=== PATIENT | female | born 1960 | race Caucasian/White ===

== ENCOUNTER → 2024-02-02 14:38 | Outpatient (REF) | payer OTHER, SELFPAY | LOC: HWRAD 14:38 | PROVIDERS: ATTENDING PHYSICIAN Physician Assistant Medical | DX: M79.674 Pain in right toe(s) (principal) | CPT/HCPCS: 73620 ==

== ENCOUNTER 2024-02-28 14:55 | Emergency (ER) | payer OTHER, SELFPAY ==
[2024-02-28 14:57] VITALS: BP 170/90
--- NOTE | 2024-02-28 16:11 | ED.GENMED ---
History of Present Illness
General
Chief Complaint: Allergic Reaction
Source: patient
Time Seen by Provider: 02/28/24 16:00
History of Present Illness
History of Present Illness:
63-year-old female with past medical history of asthma presenting to the emergency department for evaluation after she tested positive for COVID on Tuesday, symptoms began on Tuesday evening, started on Paxlovid over the weekend yesterday into today
started to notice her throat feel little itchy and had a rash on the anterior part of her chest/neck which had her concerned for possible allergic reaction. Patient took 2 Benadryl prior to coming to the emergency department. Her only other
symptoms she notes are some sinus congestion and loose stool. Patient states she has not had any fevers over the last 2 days. She has no other concerns at this time and otherwise denies any drooling/spitting, difficulty breathing, lip swelling,
tongue swelling, cough, vomiting or any other concerns.
Past History
Past History
ED Past Medical History: Asthma, Hypercholesterolemia (takes statin) and Other (Diverticulitis)
ED Past Surgical History: Other (brease biopsies,)
Social History
Tobacco: Non-smoker
Alcohol: Occasional
Drug: None
Personal:
Living: alone
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
Family History
Family History: Other
Review of Systems
Review of Systems
All Other Systems: ROS reviewed and negative except as documented in HPI and ROS
Phy Exam
Physical Exam
Physical Exam:
GENERAL: Alert , in no apparent distress
EYE: conjunctiva clear
NECK: Supple, no significant adenopathy.
ENT: o/p clr, mmm. Uvula midline, airway patent, no evidence for angioedema or anaphylaxis
CARDIAC: Regular rate and rhythm
LUNGS: Clear breath sounds bilaterally, no acute respiratory distress, no wheezes/rales/rhonchi
NEUROLOGICAL: Alert and oriented
SKIN: Warm and dry, skin intact.
MUSCULOSKELETAL: well perfused.
PSYCH: Normal and appropriate interaction.
Scores
Heart Failure Risk
Heart Failure Risk Score: Not Applicable
Heart Score for Chest Pain Patients
STEMI patient?: Not applicable
Withdrawal Assessment of Alcohol
Withdrawal Assessment Completed?: Not applicable
Course
Vital Signs
Initial and Last Documented VS:
Initial Vital Signs
Temp Pulse Resp BP Pulse Ox
98.4 F 69 16 170/90 98
02/28/24 14:57 02/28/24 14:57 02/28/24 14:57 02/28/24 14:57 02/28/24 14:57
Last Documented Vital Signs
Temp Pulse Resp BP Pulse Ox
98.4 F 69 16 170/90 98
02/28/24 14:57 02/28/24 14:57 02/28/24 14:57 02/28/24 14:57 02/28/24 14:57
MDM/Problems Addressed
Differential Diagnosis Includes:
Medication reaction to Paxlovid, COVID, currently no suspicion for anaphylaxis
MDM/Problems Addressed:
63-year-old female presenting to the emergency department with concern for possible allergic reaction versus COVID symptoms, noting throat feels a little itchy and also had a rash on the anterior portion of her neck. Started Paxlovid 2 days ago.
Tested positive for COVID on Tuesday, started on Tuesday. At this time patient is not exhibiting any signs of anaphylaxis or significant allergic reaction. We had extensive conversation about patient's symptoms and that it could potentially be
related to her COVID infection or also related to her initiating Paxlovid. At this time we discussed that it would be best to stop taking the Paxlovid and that patient can continue Benadryl as needed for symptoms. Would like to avoid steroids at
this time as this could interact with her current COVID infection. Discussed signs and symptoms to return to the emergency department with patient. At present time patient is otherwise stable for discharge home and outpatient management. She will
discontinue taking Paxlovid.
*Pulse Oximetry
Patient hypoxic: no
*Critical Care Note
Total Time (30-74mins, 75-104mins- exclusive of procedures): Not Applicable
ED Attending Note
-
Portions of this chart may have been created with voice recognition software.� Occasional wrong word or��sound alike� substitutions may have occurred due to the inherent limitations of voice recognition software.
Discharge Plan
Departure
Patient Disposition: Home (Routine Discharge)
Date of Disposition: 02/28/24
Time of Disposition: 16:11
Patient with high blood pressure during this ER visit?: Yes
Discharge Problem:
COVID-19
Instructions: Drug allergy
Prescriptions:
No Action
atorvastatin 20 MG tablet
20 mg PO QPM
cetirizine 10 MG tablet
10 mg PO DAILYPRN PRN (Reason: as directed)
famotidine 40 MG tablet
40 mg PO DAILYPRN PRN (Reason: GERD)
multivitamin with folic acid [Tab-A-Kristal] 1 TABLET tablet
1 tab PO DAILY
metronidazole 500 MG tablet
500 mg PO TID 6 Days Qty: 18 0RF
levofloxacin 750 MG tablet
750 mg PO DAILY 6 Days Qty: 6 0RF
doxycycline hyclate 100 mg capsule
100 mg PO BID 10 Days Qty: 20 0RF
Interventions
Interventions:
ED- Cardiac Assessment Last Done: 02/28/24 16:18
ED- Pulmonary Assessment Last Done: 02/28/24 16:18
ED-Skin Assessment Last Done: 02/28/24 16:18
Discharge Date and Time
Print Language: ITALIAN
== END 2024-02-28 16:56 | disposition home or self-care (01) ==
LOC: EMR 14:55
PROVIDERS: EMERGENCY PHYSICIAN Emergency Medicine
DX: U07.1 COVID-19 (principal); R03.0 Elevated blood-pressure reading, without diagnosis of hypertension
CPT/HCPCS: 99282

== ENCOUNTER → 2024-03-05 11:39 | Outpatient (REF) | payer OTHER, SELFPAY | LOC: WDC 11:39 | PROVIDERS: ATTENDING PHYSICIAN Family Medicine; FAMILY PHYSICIAN Physician Assistant Medical | DX: Z12.31 Encounter for screening mammogram for malignant neoplasm of breast (principal) | CPT/HCPCS: 77063; 77067 ==

== ENCOUNTER 2024-04-29 11:26 | Emergency (ER) | payer OTHER, SELFPAY ==
[2024-04-29 11:29] VITALS: BP 127/82
--- NOTE | 2024-04-29 12:41 | ED.GENMED ---
History of Present Illness
General
Chief Complaint: Rectal Bleeding
Source: patient
Exam Limitations: none
Time Seen by Provider: 04/29/24 12:11
Nursing documentation reviewed up to this point in time: agreed with
History of Present Illness
History of Present Illness:
Patient to ED with complaint of diarrhea, abdominal bloating. Symptoms started last . Placed on doxy by PCP on tuesday. States she stopped med on tuesday due to diarrhea worsening. Poor appetite. Reports low grade temp onTuesday. Brought
self to ED for eval. History of diverticulitis.
Past History
Past History
ED Past Medical History: Asthma, Hypercholesterolemia (takes statin) and Other (Diverticulitis)
ED Past Surgical History: Other (brease biopsies,)
Social History
Tobacco: Non-smoker
Alcohol: Occasional
Drug: None
Personal:
Living: alone
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
Family History
Family History: Other
Review of Systems
Review of Systems
Allergies reviewed?: Yes
All Other Systems: ROS reviewed and negative except as documented in HPI and ROS
Constitutional: Reports no symptoms
EENT: Reports no symptoms
Respiratory: Reports no symptoms
Cardiac: Reports no symptoms
ABD/GI: Reports diarrhea, anorexia and other (bloating)
: Reports no symptoms
Musculoskeletal: Reports no symptoms
Skin: Reports no symptoms
Neurological: Reports no symptoms
Psychiatric: Reports no symptoms
Phy Exam
General Physical Exam
General Presentation: well appearing and mild distress
General age: appears stated age
General Skin: warm and dry
General Habitus: normal
General Mental: alert
Cardiovascular Exam
Cardiovascular Exam: regular rate/rhythm and no edema
Gastrointestinal Exam
Gastrointestinal Exam: normal bowel sounds, soft, no organomegaly, non distended and no cva tenderness
Palpation: generalized: Mild tenderness
Musculoskeletal Exam
Musculoskeletal Exam: full ROM and neuro vasc intact
Skin Exam
Skin Exam: normal color, warm/dry and no rash
Psychiatric Exam
Psychiatric Exam: normal mood/affect
Course
Orders/Labs/Results
Orders:
Orders
04/29/24 12:34
CT Abd/pel W Iv And Oral Contr Urgent
Comment:
Reason For Exam: abd. pain, diarrhea, divertic hx
0.9% Sodium Chloride 1000 ml [Nss] 1,000 ml IV BOLUS
Iohexol [Omnipaque] See Protocol PO NOW STA
04/29/24 12:53
Complete Blood Count/With Diff Urgent
Comprehensive Metabolic Panel Urgent
Lipase Urgent
04/29/24 12:59
STOOL [C difficile Antigen & Toxins] Urgent
RAMANDEEP Source: Feces/Stool
Specimen Description:
Date Specimen was Collected: 04/29/24
Time Specimen was Collected: 12:54
Stool Culture Urgent
RAMANDEEP Source: Feces/Stool
Specimen Description:
Date Specimen was Collected: 04/29/24
Time Specimen was Collected: 12:54
04/29/24 16:09
LevoFLOXacin [Levaquin] 500 mg PO NOW STA
MetroNIDAZOLE [Flagyl] 500 mg PO NOW STA
Abnormal Lab Results
04/29/24
12:53
MCH 31.5 H pg
(27.0-31.0)
Plt Count 407 H 10^3/uL
(130-400)
Glucose 101 H mg/dl
(70-99)
Calcium 10.5 H mg/dl
(8.4-10.2)
Total Bilirubin 2.1 H mg/dl
(0.2-1.3)
AST 38 H U/L
(14-36)
04/29/24 12:53
04/29/24 12:53
Vital Signs
Initial and Last Documented VS:
Initial Vital Signs
Temp Pulse Resp BP Pulse Ox
98.3 F 92 18 127/82 97
04/29/24 11:29 04/29/24 11:29 04/29/24 11:29 04/29/24 11:29 04/29/24 11:29
Last Documented Vital Signs
Temp Pulse Resp BP Pulse Ox
98.3 F 72 18 124/72 97
04/29/24 11:29 04/29/24 14:15 04/29/24 11:29 04/29/24 15:38 04/29/24 11:29
*Radiology
Radiology exam reviewed: radiology read reviewed
*Pulse Oximetry
Patient hypoxic: no
*Critical Care Note
Total Time (30-74mins, 75-104mins- exclusive of procedures): Not Applicable
ED Attending Note
-
Portions of this chart may have been created with voice recognition software.� Occasional wrong word or��sound alike� substitutions may have occurred due to the inherent limitations of voice recognition software.
Discharge Plan
Departure
Patient Disposition: Home (Routine Discharge)
Date of Disposition: 04/29/24
Time of Disposition: 16:11
Patient with high blood pressure during this ER visit?: No
Condition: Good
Covid-19: Not Applicable
Discharge Problem:
Diverticulitis
Instructions: Diverticulosis (DC)
Prescriptions:
New
metronidazole 500 mg tablet
500 mg PO TID Qty: 20 0RF
levofloxacin 500 mg tablet
500 mg PO DAILY 7 Days Qty: 7 0RF
No Action
famotidine 40 MG tablet
40 mg PO DAILYPRN PRN (Reason: GERD)
atorvastatin [Lipitor] 40 mg Tablet
40 mg PO HS
bismuth subsalicylate [Pepto-Bismol] 262 mg Tablet,Chewable
3 tab PO DAILYPRN PRN (Reason: gerd)
Referrals:
Sandra Hooper PA-C [Family Provider] -
Activity Restrictions/Additional Instructions:
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 Return to the emergency department immediately for fever/chills, pain, vomiting, weakness, or for any further concerns.
Interventions
Interventions:
*Risk Screen - Suicide Last Done: 04/29/24 11:29
*General Assessment Last Done: 04/29/24 11:29
*Neglect/Abuse Screening Last Done: 04/29/24 11:29
ED- Fall Risk Assessment Last Done: 04/29/24 14:30
*ED COVID-19 Vaccine History Last Done: 04/29/24 14:20
JS-Krdhzt-Kvfjtesrof Assessment Last Done: 04/29/24 12:00
ED- Cardiac Assessment Last Done: 04/29/24 12:19
ED- Pulmonary Assessment Last Done: 04/29/24 12:19
Discharge Date and Time
Print Language: KINYARWANDA
[2024-04-29 13:07] LABS: % Basophils 0.2 % (0-2); % Eosinophils 0.2 % (0-6); % Immature Granulocytes 0.5 % (0-0.5); % Monocytes 6.3 % (1.7-9.3); % Neutrophils 71.8 % (42.2-75.2); Absolute Lymphocytes 1.3 10^3/uL (1.2-3.4); Absolute Monocytes 0.4 10^3/uL (0.1-0.6); Absolute Neutrophils 4.5 10^3/uL (1.4-6.5); Hematocrit 39.7 % (37.0-47.0); Hemoglobin 13.9 g/dL (12.0-16.0); Mean Corpuscular Hgb 31.5 pg (27.0-31.0); Mean Platelet Volume 9.2 fL (7.4-10.4); Nucleated Red Blood Cells % 0 %; Platelet Count 407 10^3/uL (130-400); Red Blood Cell Count 4.41 10^6/uL (4.20-5.40); Red Cell Dist. Width 11.9 % (11.5-14.5); White Blood Cell Count 6.2 10^3/uL (4.8-10.8)
[2024-04-29] MEDS: OMNIPAQUE 50 ML PO (13:12)
[2024-04-29] MEDS: NSS 1000 IV (13:12)
[2024-04-29 13:22] LABS: ALT (SGPT) 32 U/L (0-35); AST (SGOT) 38 U/L (14-36); Albumin 4.8 g/dl (3.5-5.0); Alkaline Phosphatase 86 U/L (38-126); Blood Urea Nitrogen 12 mg/dl (7-17); Calcium 10.5 mg/dl (8.4-10.2); Carbon Dioxide 26 mmol/L (22-30); Chloride 99 mmol/L (98-107); Glucose 101 mg/dl (70-99); Lipase 80 U/L (23-300); Potassium 4.7 mmol/L (3.5-5.1); Sodium 137 mmol/L (135-145); Total Bilirubin 2.1 mg/dl (0.2-1.3); Total Protein 7.3 g/dl (6.3-8.2); eGFR > 60.00
[2024-04-29 14:15] VITALS: BP 134/73
[2024-04-29 15:38] VITALS: BP 124/72
[2024-04-29] MEDS: LEVAQUIN 500 MG PO (16:14)
[2024-04-29] MEDS: FLAGYL 500 MG PO (16:14)
== END 2024-04-29 16:50 | disposition home or self-care (01) ==
LOC: EMR 11:26
PROVIDERS: Nurse Practitioner; EMERGENCY PHYSICIAN Emergency Medicine; FAMILY PHYSICIAN Physician Assistant Medical
DX: K57.32 Diverticulitis of large intestine without perforation or abscess without bleeding (principal); J45.909 Unspecified asthma, uncomplicated; E78.00 Pure hypercholesterolemia, unspecified
CPT/HCPCS: 99284; 74177; 80053; 83690; 85025; 87045; 87046; 87324; 87427; 87449; Q9967

== ENCOUNTER → 2025-02-13 14:24 | Outpatient (REF) | payer OTHER, SELFPAY | LOC: HWRAD 14:24 | PROVIDERS: ATTENDING PHYSICIAN Physician Assistant Medical | DX: M79.642 Pain in left hand (principal) | CPT/HCPCS: 73130 ==

== ENCOUNTER → 2025-03-12 10:49 | Outpatient (REF) | payer OTHER, SELFPAY | LOC: WDC 10:49 | PROVIDERS: ATTENDING PHYSICIAN Physician Assistant Medical | DX: Z12.31 Encounter for screening mammogram for malignant neoplasm of breast (principal) | CPT/HCPCS: 77063; 77067 ==

== ENCOUNTER → 2025-04-02 09:44 | Outpatient (REF) | payer OTHER, SELFPAY | LOC: WDC 09:44 | PROVIDERS: ATTENDING PHYSICIAN Physician Assistant Medical | DX: R92.8 Other abnormal and inconclusive findings on diagnostic imaging of breast (principal) | CPT/HCPCS: 76642 ==

== ENCOUNTER 2025-05-15 09:52 | Emergency (ER) | payer OTHER, SELFPAY ==
[2025-05-15 09:58] VITALS: BP 156/74
[2025-05-15 11:10] VITALS: BMI 29.2
--- NOTE | 2025-05-15 11:13 | ED.GENMED ---
History of Present Illness
General
Chief Complaint: Abdominal Pain
Source: patient
Exam Limitations: none
Time Seen by Provider: 05/15/25 11:06
History of Present Illness
History of Present Illness:
64yoF with a history of hyperlipidemia, GERD, and hiatal hernia presenting for evaluation of epigastric pain. Symptoms began this morning while she was drinking krista tea which she does every day. She reports an intense pain in her epigastric
region which radiated throughout her upper abdomen. Symptoms have been present for about 2 hours but are now improving. Her current pain is rated as a 3 out of 10 in severity. She took Tylenol earlier for the pain. She is otherwise asymptomatic
and denies any nausea, vomiting, chest pain, shortness of breath. Patient had a bowel movement just before her symptoms began which was normal. No previous abdominal surgeries.
Past History
Past History
ED Past Medical History: Asthma, Hypercholesterolemia (takes statin) and Other (Diverticulitis)
ED Past Surgical History: Other (brease biopsies,)
Social History
Tobacco: Non-smoker
Alcohol: Occasional
Drug: None
Personal:
Living: alone
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
Family History
Family History: Other
Phy Exam
General Physical Exam
General Presentation: well appearing and no apparent distress
General Skin: warm and dry
General Habitus: normal
General Mental: alert
ENT Exam
ENT Exam: normocephalic
Cardiovascular Exam
Cardiovascular Exam: regular rate/rhythm and no murmur
Pulmonary Exam
Pulmonary Exam: lungs clear, no respiratory distress, no rales, no crackles, no rhonchi and no wheezing
Gastrointestinal Exam
Gastrointestinal Exam: soft, non distended and other (+Mild tenderness in epigastrium and LUQ. Abdomen soft, non-distended. No rebound or guarding. Negative Hooper's sign.)
Neurological Exam
Neurological Exam: alert
[place] Coma Scale
Eye Opening: Spontaneous
Verbal Response: Oriented
Motor Response: Obeys Commands
GCS Total Score: 15
Skin Exam
Skin Exam: normal color and warm/dry
Psychiatric Exam
Psychiatric Exam: normal mood/affect
Course
Orders/Labs/Results
Orders:
Orders
05/15/25 10:01
ECG [Electrocardiogram (*1)] Urgent
Reason for Study: Chest Pain
EKG- Treatment ONCE
05/15/25 11:23
US Abdomen Complete/Upper Urgent
Comment:
Reason For Exam: epigastric pain
05/15/25 11:41
Complete Blood Count/With Diff Urgent
Comprehensive Metabolic Panel Urgent
Lipase Urgent
Troponin I Urgent
Abnormal Lab Results
05/15/25
11:41
MCH 32.9 H pg
(27.0-31.0)
Absolute Neuts (auto) 7.7 H 10^3/uL
(1.4-6.5)
Neutrophils % 79.2 H %
(42.2-75.2)
Lymphocytes % 14.1 L %
(20.5-51.1)
Potassium 5.3 H mmol/L
(3.5-5.1)
Glucose 118 H mg/dl
(70-99)
Total Bilirubin 2.0 H mg/dl
(0.2-1.3)
AST 100 H U/L
(14-36)
ALT 65 H U/L
(0-35)
05/15/25 11:41
05/15/25 11:41
Vital Signs
Initial and Last Documented VS:
Initial Vital Signs
Temp Pulse Resp BP Pulse Ox
97.8 F 84 18 156/74 97
05/15/25 09:58 05/15/25 09:58 05/15/25 09:58 05/15/25 09:58 05/15/25 09:58
Last Documented Vital Signs
Temp Pulse Resp BP Pulse Ox
97.8 F 84 18 156/74 97
05/15/25 09:58 05/15/25 09:58 05/15/25 09:58 05/15/25 09:58 05/15/25 11:14
MDM/Problems Addressed
Differential Diagnosis Includes:
64yoF here with epigastric pain that started this morning. Intense x 2 hours but now improved. No CP/SOB. She is mildly hypertensive with otherwise stable vital signs. She is well-appearing in no distress. There is mild epigastric tenderness on
exam without signs of peritonitis. Differential diagnosis includes: Pancreatitis, biliary colic, cholecystitis, gastritis, peptic ulcer disease, ACS
Initial ED plan: EKG obtained in triage which shows normal sinus rhythm without ischemic changes. Will check abdominal labs, troponin, and upper abdominal ultrasound.
*Pulse Oximetry
SaO2: 97
Oxygen Mode of Delivery: Room air
Patient hypoxic: no
*EKG
Interpreted by ED Provider?: Yes
EKG Intrepretation Date: 05/15/25
Heart Rate: 74
Rate: normal
Rhythm: sinus
[place]: normal axis
Interval: normal interval
QRS Pattern: normal QRS
Ischemia: no ischemia
*Critical Care Note
Total Time (30-74mins, 75-104mins- exclusive of procedures): Not Applicable
Update Note
Update Note:
Labs reveal a mild transaminitis with AST 100, ALT 65, and total bilirubin of 2.0. Last bilirubin was checked about a year ago and was 2.1 at that time. White count and lipase normal. Troponin undetectable. Ultrasound shows cholelithiasis
without cholecystitis. Common bile duct is 6 mm which is upper limit of normal. Patient is comfortable on reassessment and is reading a book. Abdominal exam repeated and Hooper sign remains negative. Discussed case with gastroenterology who
agrees with discharge and would like patient to have repeat blood work next week to monitor LFTs. Patient also advised to follow-up with general surgery and eat a low fat diet. Strict ED return precautions reviewed including worsening pain, fever,
jaundice. Patient in agreement with plan and was discharged in stable condition.
ED Attending Note
-
Portions of this chart may have been created with voice recognition software.� Occasional wrong word or��sound alike� substitutions may have occurred due to the inherent limitations of voice recognition software.
Discharge Plan
Departure
Patient Disposition: Home (Routine Discharge)
Date of Disposition: 05/15/25
Time of Disposition: 13:21
Patient with high blood pressure during this ER visit?: Yes
Discharge Problem:
Biliary colic
Instructions: Low-fat diet, Gallstones (DC)
Prescriptions:
No Action
famotidine 40 MG tablet
40 mg PO DAILYPRN PRN (Reason: GERD)
atorvastatin [Lipitor] 40 mg Tablet
40 mg PO HS
bismuth subsalicylate [Pepto-Bismol] 262 mg Tablet,Chewable
3 tab PO DAILYPRN PRN (Reason: gerd)
metronidazole 500 mg tablet
500 mg PO TID Qty: 20 0RF
levofloxacin 500 mg tablet
500 mg PO DAILY 7 Days Qty: 7 0RF
Referrals:
Quinn Ha MD [Active, Surgical]
Sandra Hooper PA-C [Family Provider, Family Practice]
Activity Restrictions/Additional Instructions:
Eat a low fat diet.
Please call today to schedule a follow-up appointment with general surgery. You should have repeat blood work done next week to monitor your liver enzymes.
Return to the ER immediately with any worsening symptoms including severe pain, fevers, or jaundice (yellowing of your skin or eyes).
Interventions
Interventions:
*Risk Screen - Suicide Last Done: 05/15/25 09:58
*General Assessment Last Done: 05/15/25 09:58
*Neglect/Abuse Screening Last Done: 05/15/25 11:56
*ED- Fall Risk Assessment Last Done: 05/15/25 11:10
*ED COVID-19 Vaccine History Last Done: 05/15/25 11:10
*ED Influenza Vaccine History Last Done: 05/15/25 11:10
*Nursing Disposition Last Done: 05/15/25 13:37
[facility]-Coycma-Bmgbnlgndo Assessment Last Done: 05/15/25 11:11
Discharge Date and Time
Discharge Date/Time: 05/15/25 13:37
Print Language: SAO TOMEAN
[2025-05-15 11:53] LABS: Hematocrit 42.6 % (37.0-47.0); Hemoglobin 14.7 g/dL (12.0-16.0); Mean Corp Hgb Conc. 34.5 g/dL (33.0-37.0); Mean Corpuscular Volume 95.3 fL (81.0-99.0); Nucleated Red Blood Cells % 0 %; Platelet Count 371 10^3/uL (130-400); Red Cell Dist. Width 12.5 % (11.5-14.5)
[2025-05-15 12:10] LABS: ALT (SGPT) 65 U/L (0-35); AST (SGOT) 100 U/L (14-36); Albumin 4.8 g/dl (3.5-5.0); Alkaline Phosphatase 111 U/L (38-126); Blood Urea Nitrogen 13 mg/dl (7-17); Calcium 9.7 mg/dl (8.4-10.2); Carbon Dioxide 28 mmol/L (22-30); Chloride 104 mmol/L (98-107); Estimated Creatinine Clearance 62 ml/min; Glucose 118 mg/dl (70-99); Lipase 102 U/L (23-300); Potassium 5.3 mmol/L (3.5-5.1); Sodium 140 mmol/L (135-145); Total Protein 7.5 g/dl (6.3-8.2); eGFR > 60.00
[2025-05-15 12:20] LABS: Troponin I < 0.012 ng/ml
== END 2025-05-15 13:37 | disposition home or self-care (01) ==
LOC: EMR 09:52
PROVIDERS: EMERGENCY PHYSICIAN Emergency Medicine; FAMILY PHYSICIAN Physician Assistant Medical
DX: K80.20 Calculus of gallbladder without cholecystitis without obstruction (principal); E78.00 Pure hypercholesterolemia, unspecified; J45.909 Unspecified asthma, uncomplicated
CPT/HCPCS: 99284; 76700; 80053; 83690; 84484; 85025; 93005